=== PATIENT | female | born 1930 | race Caucasian/White ===

== ENCOUNTER 2016-09-27 08:13 | Inpatient (IN) | payer MEDICARE, BC ==
--- NOTE | ~2016-09-27 | DS ---
Discharge Summary [facility] [address] [place]. [address] NAME: JONATHAN ZABALA : 28 STATUS : ADM IN PAT#: [id number] AGE: 85 ADM/REG DATE : 09/27/16 MR#: [id number] REPORT SERV DATE: 10/01/16 DICTATED BY: BOB ZAPATA DATE: 09/30/16 REPORT STATUS : Draft TRANSCRIBED BY: CLAU DATE: 09/30/16 ADMISSION DATE: 09/27/2016 DISCHARGE DATE: Date of transfer from [facility] to [place] is 09/27/2016. Date of discharge from [facility] is pending. CURRENT DIAGNOSES: 1. 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 2. Mild oropharyngeal dysphagia, responding to modifications in diet. 3. 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 4. Supraventricular tachycardias, on metoprolol and flecainide. 5. Leukocytosis. 6. Recurrent urinary tract infection on chronic antibiotic suppression therapy prior to admission. 7. Hypertension. 8. Diabetes mellitus type 2. 9. Diabetes mellitus with peripheral polyneuropathy. 10.Dyslipidemia. CURRENT CONDITION: Stable. HISTORY OF PRESENT ILLNESS: For HPI, please make reference to Dr. Leo Choi's dictation on 09/22/2016. In brief, this is an 85-year-old female who presented to the emergency department at [facility] with complaints off left-sided weakness and recurrent falls. In the ER, was noted to have significantly elevated blood pressure of 179/77, temperature of 97. Physical exam consistent with left lower extremity weakness, as well as facial droop. A CT head was done that showed moderate generalized atrophy. Old deep white matter ischemic changes. The patient was subsequently admitted to the Hospitalist Service. No tPA was administered. Neurology was consulted and recommended an MRI/MRA. MRI confirmed the presence of acute ischemic infarct at right side of the shayy measuring 9 x 18 mm, measured on diffusion weighted images. Also noted was a small 7 mm old deep white matter infarct in the left periventricular deep white matter within the coronary radiata. Also noted was a small 3 mm old lacunar infarct, left basal ganglia. Moderate diffuse cerebral involutional changes and deep white matter chronic microvascular ischemic changes. The patient was being managed for acute CVA at [facility]. HOSPITAL COURSE AT [facility]: During the course of this admission, Physical Therapy evaluated the patient. The patient was recommended to go to an acute rehab. Also, the patient had a swallow study that shows no evidence of aspiration. The patient was continued on modified diet. During the hospitalization at [facility], the patient was found to have profound sinus bradycardia, heart rate in the 40s, concern for possible junctional tachycardia. Cardiology was consulted. Cardiology recommended pacemaker placement. The patient was transferred from [facility] to [facility] for pacemaker placement. Discharge Summary [facility] [id number] [place]. [address] NAME: JONATHAN ZABALA : 28 STATUS : ADM IN [facility]#: [id number] AGE: 85 ADM/REG DATE : 09/27/16 MR#: [id number] REPORT SERV DATE: 10/01/16 DICTATED BY: BOB ZAPATA DATE: 09/30/16 REPORT STATUS : Draft TRANSCRIBED BY: CLAU DATE: 09/30/16 For detailed hospital course at [facility], please make reference to interim discharge summary dictated by Dr. Malissa Sheridan. HOSPITAL COURSE AT [facility]: The patient underwent cardiac pacemaker placement without any significant complication. Prior to cardiac pacemaker placement, EP study was done that also shows the patient has an atypical SVTs. EP recommended initiation of metoprolol and flecainide. The patient continued to receive metoprolol and flecainide. Cardiology has recommended an echocardiogram to be done, which is pending at this time. The patient's heart rate has remained in the upper 50s to 60s during the course of this admission. The patient has a paced rhythm on cardiac telemonitoring. The patient's condition is currently stable. Awaiting further recommendation from Cardiology prior to being transferred to acute rehab at [facility]. 1. Leukocytosis. The patient has extensive history of recurrent UTI, was on chronic antibiotics prior to admission for suppression, the patient continued to receive Bactrim throughout the course of this admission. White cell count initially increased to 13.1, but has now trended to 11.1. The patient has no fever, has no chills, has no dysuria. 2. Diabetes mellitus. On subcu insulin sliding scale. The patient's blood glucose has remained stable during the course of this admission. 3. Hypertension. The patient is currently receiving metoprolol 50 mg p.o. b.i.d. for blood pressure control. When the patient is medically ready, the patient will be discharged to [facility] for rehab. PENDING TEST: 1. Echocardiogram. 2. Repeat CBC. IOO/MODL Bob Zapata MD / [id number] CC: Melchor Jha MD
--- NOTE | ~2016-09-27 | DS ---
Discharge Summary [facility] [address] [facility] [facility] [place]. [address] NAME: JONATHAN ZABALA : 28 STATUS : DIS IN PAT#: [id number] AGE: 85 ADM/REG DATE : 09/27/16 MR#: [id number] REPORT SERV DATE: 10/02/16 DICTATED BY: AFIA PANCHAL DATE: 10/01/16 REPORT STATUS : Draft TRANSCRIBED BY: MODL DATE: 10/01/16 ADMISSION DATE: 09/27/2016 DISCHARGE DATE: 10/01/2016 DISCHARGE DIAGNOSES: 1. Acute cerebrovascular accident with right shayy with resulting left hemiparesis. 2. Moderate dysphagia, modified barium swallow test that did not show overt aspiration, but we changed the diet to mechanical soft diet. 3. History of tachy-tomi syndrome with sick sinus syndrome, status post pacemaker insertion on this admission. CONSULTANTS: 1. Tad Babb M.D. 2. Horacio Phillips M.D. 3. Ravi Cabezas M.D. for the pacemaker insertion. HISTORY OF PRESENT ILLNESS: This is an 85-year-old female patient, who came to the hospital initially at the [facility] with a fall and left-sided weakness. Please see dictated H and P. HOSPITAL COURSE: Please see dictated discharge summary done by Dr. Sheridan. Briefly, the patient was admitted to hospital at [facility] with acute CVA. During the hospitalization she was found to have tachy-tomi syndrome with significant bradycardia suspect to have sick sinus syndrome. Therefore, after seen by Dr. Phillips, it was decided to be transferred to [facility] for pacemaker insertion. The patient had a pacemaker done with Dr. Cabezas in this [place] and has tolerated all well. Meanwhile, also she was evaluated for dysphagia and did not show any aspiration; however, the patient requires to modify her diet to mechanical soft diet. She still has left-sided weakness and facial drooping. The patient is evaluated by the Physical Therapy and rehab and will be discharged to [facility] for acute rehab. Overall, maximized the inpatient benefit, will be discharged to [facility]. DISCHARGE MEDICATIONS: Same as home medication are: 1. Her aspirin to 325 mg once a day was added and her Lipitor was increased to 80 mg once a day. 2. Continue Celexa 20 mg once a day and flecainide 100 mg twice a day was restarted on this admission. 3. Continue Mariajose 180 mg once a day. 4. Toprol-XL 25 mg once a day. 5. Dexilant 60 mg once a day. 6. Lyrica 100 mg once a day. 7. Trimethoprim 100 mg once at nighttime. 8. She was using hydrocodone for her pain control after the pacemaker. Discharge Summary [address] [address] NAME: JONATHAN ZABALA : 28 STATUS : DIS IN PAT#: [id number] AGE: 85 ADM/REG DATE : 09/27/16 MR#: [id number] REPORT SERV DATE: 10/02/16 DICTATED BY: AFIA PANCHAL DATE: 10/01/16 REPORT STATUS : Draft TRANSCRIBED BY: CLAU DATE: 10/01/16 DISPOSITION: The patient is discharged to [facility] for acute rehab. TIME SPENT: More than 30 minutes. EKL/MODL Afia Panchal M.D. / [id number] CC: Melchor Jha M.D.
[~2016-09-27 08:13] MED LIST: *UNABLE1; ACET500CAP PO; ACTOS30 PO; ALLEGRA180 PO; CELEXA20 PO; DEMA10T PO; DEXILANT PO; DITRO5 PO; DITROPAN XL10 MG PO; DSS PO; FLECAINIDE100 MG PO; FLECAINIDE150 MG PO; GLUCOV1.25 PO; KAPIDEX60 MG PO; KLOR-CON M2020 MEQ PO; LEVAQUIN750 MG PO; LIPITOR10 PO; LIPITOR20 PO; LYRICA100 MG PO; LYRICA75 PO; MAGOX4 PO; MULTIPLE VIT PO; MULTIVITAMI1 PO; NORCO1 TAB PO; OMEGA 3550 MG PO; PREV30 PO; PROBIOTIC PO; PROLOP100 PO; REFRES1 OPH; TOPXL100 PO; TOPXL25 PO; TOPXL50 PO; ULTRAM50 PO; VIT D; VITAMIN D1000 UNI1 PO; VITAMIN D400 UNI1 PO; VOLTAREN1 % TOP; WELLSR150 PO; [UNRECOGNIZED DRUG - OTHER]
[2016-09-28 03:36] LABS: BASOPHILS 0.2 %; BASOPHILS ABSOLUTE 0.02 10/3/uL (0.0-0.16); EOSINOPHILS 1.3 %; EOSINOPHILS ABSOLUTE 0.15 10/3/uL (0.0-0.53); HEMATOCRIT 35.5 % (36.0-48.0); HEMOGLOBIN 11.8 g/dL (12.0-16.0); IMMATURE GRANULOCYTES 0.4 %; IMMATURE GRANULOCYTES ABSOLUTE 0.05 10/3/uL (0.0-0.11); LYMPHOCYTES ABSOLUTE 2.46 10/3/uL (0.67-4.30); MEAN CORPUS HGB CONC 33.2 g/dL (32.0-36.0); MEAN CORPUSCULAR HEMOGLOB 32.3 pg (26.0-34.0); MEAN CORPUSCULAR VOLUME 97.3 fL (80-100); MEAN PLATELET VOLUME 10.3 fL (9.2-13.0); MONOCYTES 7.8 %; MONOCYTES ABSOLUTE 0.91 10/3/uL (0.21-1.20); NEUTROPHILS 69.3 %; NEUTROPHILS ABSOLUTE 8.12 10/3/uL (2.02-8.40); PLATELET COUNT 297 10/3/uL (150-400); RBC DISTRIBUTION WIDTH 12.1 % (12.0-16.0); RED CELL COUNT 3.65 10/6/uL (4.0-5.6); WHITE BLOOD CELLS 11.7 10/3/uL (4.5-10.5)
[2016-09-28 03:38] LABS: MANUAL DIFF NO %
[2016-09-28 03:51] LABS: BUN (BLOOD UREA NITROGEN) 21 MG/DL (6-23); CALCIUM, SERUM 8.7 MG/DL (8.5-10.4); CHLORIDE, SERUM 104 MMOL/L (96-112); CO2 (CARBON DIOXIDE) 25 MMOL/L (24-34); CREATININE 0.66 MG/DL (0.55-1.02); GFR AFRICAN AMERICAN 93 ML/MIN (>=60); GFR NON AFRICAN AMERICAN 80 ML/MIN (>=60); GLUCOSE, SERUM 126 MG/DL (60-99); PHOSPHORUS, SERUM 3.7 MG/DL (2.5-4.5); POTASSIUM, SERUM 4.5 MMOL/L (3.5-5.3); SODIUM, SERUM 139 MMOL/L (135-148)
[2016-09-28 03:53] LABS: ALBUMIN 2.6 G/DL (3.5-5.0)
[2016-09-29 04:54] LABS: BASOPHILS 0.3 %; BASOPHILS ABSOLUTE 0.04 10/3/uL (0.0-0.16); EOSINOPHILS ABSOLUTE 0.27 10/3/uL (0.0-0.53); HEMATOCRIT 34.4 % (36.0-48.0); HEMOGLOBIN 11.3 g/dL (12.0-16.0); IMMATURE GRANULOCYTES 0.3 %; IMMATURE GRANULOCYTES ABSOLUTE 0.04 10/3/uL (0.0-0.11); LYMPHOCYTES ABSOLUTE 2.46 10/3/uL (0.67-4.30); MEAN CORPUS HGB CONC 32.8 g/dL (32.0-36.0); MEAN CORPUSCULAR HEMOGLOB 32.2 pg (26.0-34.0); MEAN PLATELET VOLUME 10.5 fL (9.2-13.0); MONOCYTES 7.8 %; MONOCYTES ABSOLUTE 1.07 10/3/uL (0.21-1.20); NEUTROPHILS 71.6 %; NEUTROPHILS ABSOLUTE 9.76 10/3/uL (2.02-8.40); PLATELET COUNT 249 10/3/uL (150-400); RBC DISTRIBUTION WIDTH 12.3 % (12.0-16.0); RED CELL COUNT 3.51 10/6/uL (4.0-5.6); WHITE BLOOD CELLS 13.6 10/3/uL (4.5-10.5)
[2016-09-29 04:56] LABS: MANUAL DIFF NO %
[2016-09-29 05:09] LABS: CALCIUM, SERUM 8.6 MG/DL (8.5-10.4); CHLORIDE, SERUM 101 MMOL/L (96-112); CO2 (CARBON DIOXIDE) 26 MMOL/L (24-34); CREATININE 0.73 MG/DL (0.55-1.02); GFR AFRICAN AMERICAN 86 ML/MIN (>=60); GFR NON AFRICAN AMERICAN 75 ML/MIN (>=60); GLUCOSE, SERUM 113 MG/DL (60-99); POTASSIUM, SERUM 4.1 MMOL/L (3.5-5.3); SODIUM, SERUM 138 MMOL/L (135-148)
[2016-09-29 05:28] LABS: BUN (BLOOD UREA NITROGEN) 27 MG/DL (6-23)
[2016-09-29 14:31] LABS: PROCALCITONIN <0.05 ng/mL (<0.5)
[2016-09-29 22:06] LABS: ASCORBIC ACID (UR NOT ORDER) NEG (NEG); BILIRUBIN, URINE NEGATIVE (NEG); KETONE, URINE NEGATIVE (NEG); LEUKOCYTE ESTERASE(NOT OR SMALL (NEG); WBC (NOT ORDERED) (RFLEX) 10 (0-5)
[2016-09-30 05:04] LABS: BASOPHILS 0.3 %; BASOPHILS ABSOLUTE 0.03 10/3/uL (0.0-0.16); EOSINOPHILS ABSOLUTE 0.33 10/3/uL (0.0-0.53); HEMATOCRIT 32.8 % (36.0-48.0); HEMOGLOBIN 11.1 g/dL (12.0-16.0); IMMATURE GRANULOCYTES 0.5 %; IMMATURE GRANULOCYTES ABSOLUTE 0.06 10/3/uL (0.0-0.11); LYMPHOCYTES ABSOLUTE 2.77 10/3/uL (0.67-4.30); MEAN CORPUS HGB CONC 33.8 g/dL (32.0-36.0); MEAN CORPUSCULAR HEMOGLOB 32.9 pg (26.0-34.0); MEAN CORPUSCULAR VOLUME 97.3 fL (80-100); MEAN PLATELET VOLUME 10.4 fL (9.2-13.0); MONOCYTES 8.4 %; MONOCYTES ABSOLUTE 0.93 10/3/uL (0.21-1.20); NEUTROPHILS 62.8 %; NEUTROPHILS ABSOLUTE 6.98 10/3/uL (2.02-8.40); PLATELET COUNT 250 10/3/uL (150-400); RBC DISTRIBUTION WIDTH 12.2 % (12.0-16.0); RED CELL COUNT 3.37 10/6/uL (4.0-5.6); WHITE BLOOD CELLS 11.1 10/3/uL (4.5-10.5)
[2016-09-30 05:16] LABS: MANUAL DIFF NO %
[2016-09-30 07:03] LABS: ALBUMIN 2.6 G/DL (3.5-5.0); CALCIUM, SERUM 8.4 MG/DL (8.5-10.4); CHLORIDE, SERUM 103 MMOL/L (96-112); CO2 (CARBON DIOXIDE) 27 MMOL/L (24-34); CREATININE 0.56 MG/DL (0.55-1.02); GFR AFRICAN AMERICAN 98 ML/MIN (>=60); GFR NON AFRICAN AMERICAN 84 ML/MIN (>=60); GLUCOSE, SERUM 110 MG/DL (60-99); PHOSPHORUS, SERUM 3.1 MG/DL (2.5-4.5); SODIUM, SERUM 137 MMOL/L (135-148)
[2016-09-30 07:04] LABS: BUN (BLOOD UREA NITROGEN) 19 MG/DL (6-23)
[2016-09-30 14:41] LABS: BASOPHILS 0.4 %; BASOPHILS ABSOLUTE 0.04 10/3/uL (0.0-0.16); EOSINOPHILS 2.8 %; EOSINOPHILS ABSOLUTE 0.29 10/3/uL (0.0-0.53); HEMATOCRIT 34.1 % (36.0-48.0); HEMOGLOBIN 11.4 g/dL (12.0-16.0); IMMATURE GRANULOCYTES 0.5 %; IMMATURE GRANULOCYTES ABSOLUTE 0.05 10/3/uL (0.0-0.11); LYMPHOCYTES 19.6 %; LYMPHOCYTES ABSOLUTE 2.05 10/3/uL (0.67-4.30); MEAN CORPUS HGB CONC 33.4 g/dL (32.0-36.0); MEAN CORPUSCULAR HEMOGLOB 32.7 pg (26.0-34.0); MEAN CORPUSCULAR VOLUME 97.7 fL (80-100); MEAN PLATELET VOLUME 10.4 fL (9.2-13.0); MONOCYTES 5.2 %; MONOCYTES ABSOLUTE 0.54 10/3/uL (0.21-1.20); NEUTROPHILS 71.5 %; NEUTROPHILS ABSOLUTE 7.47 10/3/uL (2.02-8.40); PLATELET COUNT 266 10/3/uL (150-400); RBC DISTRIBUTION WIDTH 12.1 % (12.0-16.0); RED CELL COUNT 3.49 10/6/uL (4.0-5.6); WHITE BLOOD CELLS 10.4 10/3/uL (4.5-10.5)
[2016-09-30 14:42] LABS: MANUAL DIFF NO %
[2017-01-05] MEDS ORDERED: FLOMAX4 PO (11:55)
[2017-01-05] MEDS ORDERED: TOPXL25 PO (11:55)
[2017-01-05] MEDS ORDERED: SIN25 PO (11:55)
[2017-01-05] MEDS ORDERED: FLECAINIDE100 MG PO (11:56)
[2017-01-05] MEDS ORDERED: PROTONIX PO (11:56)
[2017-01-05] MEDS ORDERED: LOVENOX40 SC (11:56)
[2017-01-05] MEDS ORDERED: LIPITOR80 MG PO (11:56)
[2017-01-05] MEDS ORDERED: CELEXA20 PO (11:56)
[2017-01-05] MEDS ORDERED: PROLOP100 PO (11:57)
[2017-01-05] MEDS ORDERED: HUMALOG SC (11:57)
[2017-01-05] MEDS ORDERED: LYRICA100 MG PO (11:57)
[2017-01-05] MEDS ORDERED: NORCO1 TA1 PO (11:57)
[2017-01-05] MEDS ORDERED: HALF81 PO (11:57)
[2017-01-05] MEDS ORDERED: BANOPHEN25 MG PO (11:58)
[2017-01-05] MEDS ORDERED: VITAMIN D2000 UNIT PO (11:58)
[2017-01-05] MEDS ORDERED: ALLEGRA180 PO (11:58)
[2017-01-05] MEDS ORDERED: DUONEB INH ×2 (11:58)
== END 2016-10-01 15:44 | DRG 41 ==
LOC: CORLMH 08:13 → SSU1 09:12 → 5NO 09-28 17:31
PROVIDERS: Hospitalist; Internal Medicine Cardiovascular Disease
PROC: 0JH606Z Insertion of Pacemaker, Dual Chamber into Chest Subcutaneous Tissue and Fascia, Open Approach (ICD-10-PCS; principal; 2016-09-27)
PROC: 02H63JZ Insertion of Pacemaker Lead into Right Atrium, Percutaneous Approach (ICD-10-PCS; 2016-09-27)
PROC: 02HK3JZ Insertion of Pacemaker Lead into Right Ventricle, Percutaneous Approach (ICD-10-PCS; 2016-09-27)
DX: I63.9 Cerebral infarction, unspecified (principal); I47.1 Supraventricular tachycardia; I44.2 Atrioventricular block, complete; E11.42 Type 2 diabetes mellitus with diabetic polyneuropathy; G81.94 Hemiplegia, unspecified affecting left nondominant side; I49.5 Sick sinus syndrome; N39.0 Urinary tract infection, site not specified; R13.12 Dysphagia, oropharyngeal phase; I10 Essential (primary) hypertension; E78.5 Hyperlipidemia, unspecified; Z87.440 Personal history of urinary (tract) infections; M41.9 Scoliosis, unspecified; M81.0 Age-related osteoporosis without current pathological fracture; Z90.710 Acquired absence of both cervix and uterus; F32.9 Major depressive disorder, single episode, unspecified
CPT/HCPCS: 33208; 70450; 70544; 70547; 70551; 71010; 71100-LT; 72125; 73502-LT; 73560-LT; 74230; 80048; 80061; 80069; 81001; 82550; 82553; 82962; 83605; 83735; 83880; 84145; 84439; 84443; 84484; 85025; 85610; 85730; 87040; 87086; 92611-GN; 93005; 97110-GO; 97110-GP; 97162-GP; 97165-GO; 97530-GO; 97530-GP; 99285; A9270-GY; C1769; C1785; C1892; C1898; C8924; G8978-CM-GP; G8979-CK-GP; G8979-CM-GP; G8980-CL-GP; G8996-CJ-GN; G8997-CJ-GN; G8998-CJ-GN; J0690; J1170; J1940; Q9957; Q9967